=== PATIENT | female | born 1995 | race Caucasian/White ===

== ENCOUNTER → 2016-08-31 | Outpatient (REF) | payer BC, MEDICAID ==
[~2016-08-31] MED LIST: ACET50TA PO; IBUP80TA PO
== END ==
LOC: M LAB REF 16:45
PROVIDERS: ATTEND Obstetrics & Gynecology
DX: Z34.83 Encounter for supervision of other normal pregnancy, third trimester (principal)

== ENCOUNTER 2016-09-15 07:30 | Inpatient (IN) | payer BC, MEDICAID ==
[~2016-09-15] VITALS: Ht 152.4 cm; Wt 97.0 kg
[~2016-09-15 07:30] MED LIST changes: +PREN1TAB11 PO
[2016-09-21] VITALS (8 sets, daily range): BP systolic 121–145; BP diastolic 58–73
[2016-09-21] MEDS ORDERED: BICITRA 30ML SOLN UDC PO ONE (07:45)
[2016-09-21] MEDS ORDERED: LR 1,000 ML IV SCH (07:45)
[2016-09-21] MEDS ORDERED: LR 800 ML IV ONE (07:45)
[2016-09-21 08:22] LABS: MEAN CORPUSCULAR HEMOGLOBIN 29.5 pg (27.0-33.0); MEAN CORPUSCULAR HGB CONC 34.5 g/dl (32.0-36.5); MEAN CORPUSCULAR VOLUME 85.4 fl (80.0-96.0); RED CELL DISTRIBUTION WIDTH 13.5 % (11.5-14.5); WHITE BLOOD COUNT 10.5 K/mm3 (4.0-10.0)
[2016-09-21] MEDS ORDERED: MORPHINE PRES-FREE INJ 10 MG/10 ML VIAL (J2274) As Ordered ONE (09:31)
[2016-09-21] MEDS ORDERED: METOCLOPRAMIDE INJ 10MG/2ML VIAL (J2765) IV PRN (10:09)
[2016-09-21] MEDS: LR 1,000 ML IV SCH ×3 (10:09→23:48)
[2016-09-21] MEDS ORDERED: ONDANSETRON 4MG/2ML VIAL (J2405) IV PRN ×3 (10:09→11:30)
[2016-09-21] MEDS ORDERED: NALOXONE INJ 0.4 MG/1 ML VIAL (J2310) IV PRN ×2 (10:09)
[2016-09-21] MEDS ORDERED: NALBUPHINE HCL 10 MG/ML AMP (J2300) IV PRN ×2 (10:09→11:30)
[2016-09-21] MEDS ORDERED: DOCUSATE SODIUM 100 MG CAP PO PRN (10:15)
[2016-09-21] MEDS ORDERED: PERCOCET 5MG/325MG TAB PO PRN ×3 (10:15→11:30)
[2016-09-21] MEDS ORDERED: RHOGAM 300 MCG (1500 IU) INJ (J2790) IM SCH (10:15)
[2016-09-21] MEDS ORDERED: MEASLES,MUMPS,RUBELLA VACCINE INJ (MMR-II) (90707) SC SCH (10:15)
[2016-09-21] MEDS ORDERED: PHENYLephrine HCL 500 MCG/5 ML (100MCG/ML) SYRINGE (J2370) As Ordered ONE (10:21)
[2016-09-21] MEDS ORDERED: ONDANSETRON 4MG/2ML VIAL (J2405) As Ordered ONE (10:25)
[2016-09-21] MEDS ORDERED: OXYTOCIN DRIP 30 UNITS in APPROPRIATE DILUENT 1 EA IV ONE (10:30)
[2016-09-21] MEDS ORDERED: fentaNYL 100 MCG/2 ML INJECTION (J3010) IV PRN (11:30)
[2016-09-21] MEDS ORDERED: KETOROLAC 30 MG/ML VIAL (J1885) IV PRN (11:30)
--- NOTE | 2016-09-21 11:57 | RO ---
DATE OF PROCEDURE: 09/21/2016 PREPROCEDURE DIAGNOSIS: 39 weeks, breech presentation. POSTPROCEDURE DIAGNOSIS: 39 weeks, breech presentation. PROCEDURE: Primary low transverse section. SURGEON: Bayron Hutchinson MD CHILD AND FAMILY SERVICES SPECIALIST: Amos Chapman DO ANESTHESIA: Spinal. ESTIMATED BLOOD LOSS: 500 mL. URINE OUTPUT: 350 mL. FINDINGS: 3992 gram or 8 pound 9 ounce male infant. scores 8 and 8. Odette breech position. Normal uterus, fallopian tubes, and ovaries. DESCRIPTION OF PROCEDURE: THe patient was taken to the operating room where spinal anesthesia was induced. She was prepped and draped in a sterile fashion in the supine position. Martinez catheter was placed. Pfannenstiel skin incision was made with the scalpel and carried through to the fascia. The fascia was nicked and extended. The peritoneal cavity was entered. Bladder flap was created. Curvilinear incision was made in the lower uterine segment until bulging membranes were noted. This was extended manually. Membranes ruptured, clear fluid. The was delivered from the odette breech position using standard maneuvers without difficulty. The cord was doubly clamped and cut. The infant was handed off to the awaiting nurses. Placenta was expressed. The uterus was exteriorized and cleared of clots and debris. Uterine incision was closed with #0 Vicryl in a running lock fashion. A second imbricating layer of #0 Vicryl was placed. The uterus was placed back in the abdominal cavity. The peritoneum was closed with #0 Vicryl. Subcutaneous tissue was irrigated. The deep layer was closed with #2-0 chromic. The skin was closed with #4-0 Monocryl. Sponge and instrument counts were correct times two.
[2016-09-21] MEDS: KETOROLAC 30 MG/ML VIAL (J1885) IV SCH ×2 (18:03→23:48)
[2016-09-22 02:00] VITALS: BP 114/57
[2016-09-22] MEDS: KETOROLAC 30 MG/ML VIAL (J1885) IV SCH (05:55)
[2016-09-22 06:05] VITALS: BP 119/57
[2016-09-22 07:05] LABS: MEAN CORPUSCULAR HEMOGLOBIN 28.8 pg (27.0-33.0); MEAN CORPUSCULAR HGB CONC 33.3 g/dl (32.0-36.5); MEAN CORPUSCULAR VOLUME 86.7 fl (80.0-96.0); RED CELL DISTRIBUTION WIDTH 13.8 % (11.5-14.5); WHITE BLOOD COUNT 9.9 K/mm3 (4.0-10.0)
[2016-09-22] MEDS: PRENATAL VITAMIN TAB PO SCH (08:28)
[2016-09-22 10:00] VITALS: BP 112/65
[2016-09-22] MEDS: LR 1,000 ML IV SCH ×2 (12:21→18:09)
[2016-09-22] MEDS: IBUPROFEN 800 MG TAB PO SCH ×2 (12:21→20:19)
[2016-09-22 14:00] VITALS: BP 116/64
[2016-09-22 18:19] VITALS: BP 127/70
[2016-09-22 22:18] VITALS: BP 128/75
[2016-09-23] MEDS: IBUPROFEN 800 MG TAB PO SCH (03:56)
[2016-09-23 06:04] VITALS: BP 121/63
[2016-09-23] MEDS ORDERED: IBUP800T23 PO (07:18)
[2016-09-23] MEDS ORDERED: PERC5TAB6 PO (07:19)
[2016-09-23] MEDS ORDERED: MOTR200T44 PO (09:56)
[2016-09-23] MEDS ORDERED: PRENTAB13 PO (09:56)
[2016-09-23] MEDS ORDERED: OXYC1TAB23 PO (09:56)
[2016-09-23] MEDS ORDERED: COLA100C PO (09:56)
[2016-09-23] MEDS: PRENATAL VITAMIN TAB PO SCH (10:08)
== END 2016-09-23 11:00 | disposition home or self-care (01) | DRG 540 ==
LOC: M LDI 09-21 07:28 → M OBS 09-21 13:02
PROVIDERS: ADMIT Specialist; ATTEND Specialist
PROC: 10D00Z1 Extraction of Products of Conception, Low, Open Approach (ICD-10-PCS; principal; 2016-09-21 09:30)
DX: O64.1XX0 Obstructed labor due to breech presentation, not applicable or unspecified (principal); Z37.0 Single live birth; Z3A.39 39 weeks gestation of pregnancy

== ENCOUNTER → 2017-04-14 | Outpatient (REF) | payer BC ==
[~2017-04-14] MED LIST changes: +COLA100C5 PO; +IBUP1TAB7 PO; +MOTR200T44 PO; +OXYC1TAB23 PO; +PERC5TAB12 PO; +PRENTAB20 PO
== END ==
LOC: M LAB REF 17:04
PROVIDERS: ATTEND Physician Assistant Medical
DX: J02.9 Acute pharyngitis, unspecified (principal)

== ENCOUNTER → 2017-11-10 | Outpatient (REF) | payer BC | LOC: M LAB REF 17:27 | DX: Z12.4 Encounter for screening for malignant neoplasm of cervix (principal) ==

== ENCOUNTER → 2017-12-30 | Outpatient (REF) | payer BC | LOC: M LAB REF 13:25 | DX: R30.0 Dysuria (principal) | CPT/HCPCS: 87086 ==

== ENCOUNTER → 2018-01-26 | Outpatient (REF) | payer BC ==
[2018-01-26 19:01] LABS: CHLAMYDIA DNA AMPLIFICATION NEGATIVE (NEGATIVE); GC DNA AMPLIFICATION NEGATIVE (NEGATIVE)
== END ==
LOC: M LAB REF 17:13
DX: R10.2 Pelvic and perineal pain (principal)
CPT/HCPCS: 87086

== ENCOUNTER → 2018-02-23 | Outpatient (REF) | payer BC | LOC: M LAB REF 18:52 | DX: J02.9 Acute pharyngitis, unspecified (principal) ==

== ENCOUNTER → 2020-01-05 | Outpatient (CLI) | payer BC ==
[~2020-01-05] MED LIST changes: -ACET50TA PO; +MAPA500T17 PO
[2020-01-06 08:44] LABS: BASO % 0.2 % (0.0-1.0); EOS # 0.2 10^3/uL (0.0-0.5); EOS % 1.9 % (0.0-3.0); HEMATOCRIT 39.7 % (36.0-47.0); HEMOGLOBIN 12.3 g/dl (12.0-15.5); LYMPH # 1.9 10^3/uL (1.5-5.0); LYMPH % 18.7 % (24.0-44.0); MEAN CORPUSCULAR HEMOGLOBIN 28.5 pg (27.0-33.0); MEAN CORPUSCULAR VOLUME 92.1 fl (80.0-96.0); MONO # 0.7 10^3/uL (0.0-0.8); MONO % 7.4 % (0.0-5.0); NEUTROPHILS # 7.1 10^3/uL (1.5-8.5); NEUTROPHILS % 71.6 % (36.0-66.0); PLATELET COUNT, AUTOMATED 217 10^3/uL (150-450); RED BLOOD COUNT 4.31 10^6/uL (4.00-5.40); WHITE BLOOD COUNT 9.9 10^3/uL (4.0-10.0)
[2020-01-06 11:21] LABS: CHLAMYDIA DNA AMPLIFICATION NEGATIVE (NEGATIVE); GC DNA AMPLIFICATION NEGATIVE (NEGATIVE)
[2020-01-07 10:51] LABS: HEPATITIS C VIRUS ABY INDEX 0.1 INDEX (<0.8); HIV 1&2 SCREEN CENTAUR NEGATIVE (NEGATIVE)
== END ==
LOC: M WUC 10:11
PROVIDERS: ATTEND Specialist

== ENCOUNTER → 2020-03-04 | Outpatient (CLI) | payer BC ==
--- NOTE | 2020-04-25 08:28 | REP ---
OBSTETRIC ULTRASOUND REASON FOR EXAM: anatomy. Delay in reporting results from malfunction of the hospital computer system as the result of a malware attack. FINDINGS: There is a single intrauterine gestation in a transverse lie with the head to the maternal right. The placenta is posterior, grade 0 without previa and without abruptio. heart rate is 139 beats per minute. Subjectively the amniotic fluid volume is normal. The cervix measures 4.8 cm in length. The composite gestational age by the ultrasound today is 19 weeks 5 days. Estimated weight is 300 grams. This is the 73rd percentile. The following anatomic structures are identified and are unremarkable: Cisterna magnum, cavum septum pellucidum, thalami, spine, stomach, kidneys, four chamber heart, cardiac right and left ventricular outflow tracts, bladder, three-vessel cord, cord insertion, upper and lower extremities, face and upper lip. No anomalies are identified. MTDD
== END ==
LOC: M WHC 06:16
PROVIDERS: ATTEND Advanced Practice Midwife
DX: Z34.82 Encounter for supervision of other normal pregnancy, second trimester (principal); Z3A.19 19 weeks gestation of pregnancy

== ENCOUNTER → 2020-04-19 | Outpatient (CLI) | payer BC ==
[2020-04-19 14:39] LABS: BASO % 0.3 % (0.0-1.0); EOS # 0.2 10^3/uL (0.0-0.5); HEMATOCRIT 35.5 % (36.0-47.0); HEMOGLOBIN 11.7 g/dl (12.0-15.5); LYMPH # 1.5 10^3/uL (1.5-5.0); MEAN CORPUSCULAR HEMOGLOBIN 30.1 pg (27.0-33.0); MEAN CORPUSCULAR VOLUME 91.3 fl (80.0-96.0); MONO # 0.8 10^3/uL (0.0-0.8); NEUTROPHILS # 8.1 10^3/uL (1.5-8.5); NEUTROPHILS % 75.4 % (36.0-66.0); PLATELET COUNT, AUTOMATED 196 10^3/uL (150-450); RED BLOOD COUNT 3.89 10^6/uL (4.00-5.40); WHITE BLOOD COUNT 10.8 10^3/uL (4.0-10.0)
== END ==
LOC: M WUC 09:23
PROVIDERS: ATTEND Specialist
DX: Z34.82 Encounter for supervision of other normal pregnancy, second trimester (principal)
CPT/HCPCS: 36415; 82950; 85025; 86850; 86900; 86901; J2790

== ENCOUNTER → 2020-06-25 | Outpatient (REF) | payer BC | LOC: M SFHCWAGY 16:56 | PROVIDERS: ATTEND Specialist | DX: Z34.83 Encounter for supervision of other normal pregnancy, third trimester (principal); Z3A.00 Weeks of gestation of pregnancy not specified ==

== ENCOUNTER → 2020-07-24 | Outpatient (CLI) | payer BC ==
[~2020-07-24] MED LIST changes: +PERCOCET PO
== END ==
LOC: M LABSMTC 09:48
PROVIDERS: ATTEND Anesthesiology
DX: Z01.812 Encounter for preprocedural laboratory examination (principal); Z20.828 Contact with and (suspected) exposure to other viral communicable diseases

== ENCOUNTER 2020-07-29 05:13 | Inpatient (IN) | payer BC ==
[~2020-07-29] VITALS: Ht 180.3 cm; Wt 103.4 kg
[2020-07-29] VITALS (8 sets, daily range): BP systolic 125–140; BP diastolic 65–87
[~2020-07-29 05:13] MED LIST changes: -PERCOCET PO
[2020-07-29] MEDS ORDERED: BICITRA 30ML SOLN UDC PO ONE (05:30)
[2020-07-29] MEDS ORDERED: LR 1,000 ML IV ONE (05:30)
[2020-07-29] MEDS ORDERED: ceFAZolin SOD 2 GM in IV 1 EA IV ONE (05:45)
[2020-07-29 06:28] LABS: HEMATOCRIT 35.2 % (36.0-47.0); HEMOGLOBIN 11.1 g/dl (12.0-15.5); MEAN CORPUSCULAR HEMOGLOBIN 27.4 pg (27.0-33.0); MEAN CORPUSCULAR HGB CONC 31.5 g/dl (32.0-36.5); MEAN CORPUSCULAR VOLUME 86.9 fl (80.0-96.0); PLATELET COUNT, AUTOMATED 157 10^3/uL (150-450); RED BLOOD COUNT 4.05 10^6/uL (4.00-5.40); WHITE BLOOD COUNT 8.2 10^3/uL (4.0-10.0)
[2020-07-29] MEDS ORDERED: LR 1,000 ML IV SCH ×3 (06:30→11:45)
[2020-07-29] MEDS ORDERED: MORPHINE PRES-FREE INJ 10 MG/10 ML VIAL (J2274) As Ordered ONE (07:19)
[2020-07-29] MEDS ORDERED: OXYTOCIN INJ 10 UNITS/ML VIAL (J2590) As Ordered ONE (07:24)
--- NOTE | 2020-07-29 07:45 | HPEPDOC ---
Obstetrical History & Physical General Date of Admission Jul 29, 2020 at 05:13 History of Present Illness 25yo at 41+0 weeks EGA. Presents for a scheduled RLTCS/BTL. Was awaiting spontaneous labor, but decided to proceed with RLTCS if she reached 41 weeks without labor. No LOF/VB/uctx. +FM. Requesting tubal sterilization. 100% satisfied parity. Dating Final EDC: Jul 22, 2020 Past Medical History Past Medical History Medical History PMH: none SH: LTCS x 1 Meds: PNV All: NKDA Sochx: no t/e/d Famhx: HTN Allergies Coded Allergies: No Known Allergies (Unverified , 07/16/20) Medications Scheduled Vit No.124/Iron/Folic ( Vitamin Tablet) 1 Tab Tab, 1 TAB PO DAILY Physical Examination Physical Examination GENERAL: Alert and oriented times three. BREAST: . ABDOMEN: Gravid and non-tender to touch. FETUS: Is vertex (VTX) by sterile vaginal examination (SVE), fetus is vertex (VTX) by Corey. HEART RATE: Regular rate and rhythm. LUNGS: Clear to auscultation (CTA). EXTREMITIES: No edema. No clonus. Vital Signs/I&O Vital Signs Date Time Temp Pulse Resp B/P (MAP) Pulse Ox O2 Delivery O2 Flow Rate FiO2 07/29/20 07:20 97.8 64 16 Room Air 07/29/20 06:42 127/69 (88) Laboratory Data 24H LABS Laboratory Tests 2 07/28/20 20:52: Serology Scanned Report Hepatitis B Testing 07/29/20 06:14: Nucleated Red Blood Cells % (auto) 0.0 CBC/BMP Laboratory Tests 07/29/20 06:14 Pertinent Laboratoy Data Blood Type: A- RBC Antibody Screen: Negative HIV: Negative Hepatitis B: Negative Hepatitis C: Negative Rubella: Immune Chlamydia/Gonorrhea: Negative Glucose Tolerance Test: 94 Assessment Heart Rate (FHR): 135 Variability: Moderate Accelerations: Positive Decelerations: None Tocometer Frequency: irregular Assessment/Plan Assessment 25yo . 41+0 weeks. Declines IOL. Plan for RLTCS and BTL. Reassuring maternal and status. Plan Admit, expect 2 MN Preparations for OR being made Ancef 2g for PPx. BRIE CONDON CNM Jul 29, 2020 07:45
[2020-07-29] MEDS ORDERED: diphenhydrAMINE 50MG/ML VIAL (J1200) IV PRN (07:47)
[2020-07-29] MEDS ORDERED: METOCLOPRAMIDE INJ 10MG/2ML VIAL (J2765 PER 1) IV PRN (07:47)
[2020-07-29] MEDS ORDERED: NALBUPHINE HCL 10 MG/ML AMP (J2300) IV PRN (07:47)
[2020-07-29] MEDS ORDERED: NALOXONE INJ 0.4MG/1ML VIAL (J2310 PER 1MG) IV PRN ×2 (07:47)
[2020-07-29] MEDS ORDERED: ONDANSETRON 4MG/2ML VIAL IV PRN ×2 (07:47→09:30)
[2020-07-29] MEDS ORDERED: ONDANSETRON 4MG/2ML VIAL As Ordered ONE (07:57)
[2020-07-29] MEDS ORDERED: KETOROLAC 60MG 2ML VIAL As Ordered ONE (07:58)
[2020-07-29] MEDS ORDERED: dexameTHASONE 4 MG/ML 1ML VIAL (J1100 PER 1MG) As Ordered ONE (07:58)
[2020-07-29] MEDS ORDERED: OXYTOCIN 30 UNITS IN 0.9% NaCl 500ML IV BAG (J2590) As Ordered ONE (09:07)
[2020-07-29] MEDS ORDERED: OXYTOCIN DRIP 30 UNITS in IV 1 EA IV SCH (09:16)
[2020-07-29] MEDS ORDERED: ONDANSETRON 4 MG TAB PO PRN (09:30)
[2020-07-29] MEDS ORDERED: PERCOCET 5MG/325MG TAB PO PRN (09:30)
[2020-07-29] MEDS ORDERED: fentaNYL 100 MCG/2 ML INJECTION (J3010) IV PRN (09:30)
[2020-07-29] MEDS ORDERED: oxyCODONE 5MG TAB PO PRN (09:30)
[2020-07-29] MEDS ORDERED: PROMETHAZINE 25 MG TAB PO PRN (09:30)
[2020-07-29] MEDS ORDERED: RHOGAM 300 MCG (1500 IU) INJ (J2790) IM SCH (09:30)
[2020-07-29] MEDS ORDERED: MEASLES,MUMPS,RUBELLA VACCINE INJ (MMR-II) (90707) SC SCH (09:30)
--- NOTE | 2020-07-29 09:53 | ROOPDOC ---
[facility] Report Of Operation Report of Operation DATE OF PROCEDURE: 07/29/2020 PREPROCEDURE DIAGNOSES: 41 weeks gestation. History of prior low transverse section. Satisfied parity POSTPROCEDURE DIAGNOSES: same PROCEDURE: Repeat low transverse section with bilateral tubal ligation. SURGEON: Amos Chapman DO FACOG HIGH CLIMBER: Amy Valdez DO (Essential role in retraction, extraction, and closure of all tissue layers) ANESTHESIA: Spinal with Duramorph ESTIMATED BLOOD LOSS: 600 mL. IV FLUIDS: 1500 mL LR URINE OUTPUT: 150mL COMPLICATIONS: None. FINDINGS: Normal uterus and bilateral fallopian tubes/ovaries. PREOPERATIVE ANTIBIOTICS: Ancef 2g IV x 1. DATA: Apgars 9 and 9. Birthweight 4700g, 10lbs 6oz . SPECIMENS: right and left fallopian tubal segments. right fallopian tube includes fimbriated end. PRIMARY INDICATION FOR : history of prior low transverse section. DESCRIPTION OF PROCEDURE: The patient was counseled on the risks, benefits, indications and alternatives of the procedure. Informed consent was obtained. She was taken to the operating room with IV running and placed on the operating table in the dorsal supine position with a leftward tilt. Regional anesthesia/epidural was bolused and found to be adequate. Sequential compression devices were placed on the lower extremities. A Martinez catheter was placed under sterile conditions. She was prepared and draped in normal sterile fashion. A time out was performed per pr otocol. Epidural anesthesia was again found to be adequate. A Pfannenstiel skin incision was made with the 10 blade. The 10 blade was used to dissect down to the level of the rectus sheath fascia. The rectus sheath pressure was incised midline and this was extended bilaterally with Yan scissors , and manual stretch. The rectus muscle bellies were dissected off the rectus sheath fascia superiorly and inferiorly using both sharp and blunt dissection. The midline was identified. The peritoneum was identified and entered digitally. The peritoneal opening was extended with manual stretch. The Mobius retractor was placed. The vesicouterine peritoneum was dissected with Metzenbaum scissors to create the bladder flap. A low transverse uterine incision was made with the 10 blade. This was extended with manual stretch. The amniotic sac was punctured, and clear fluid was noted. The head delivered through the hysterotomy without difficulty. The remainder of the body delivered with ease. The cord was doubly clamped and cut, and the baby was handed off to awaiting care. data shown above. The placenta was removed manually. The intrauterine cavity was cleared of all clot and debris. The hysterotomy was closed with 0 Vicryl in running locked fashion. This was reinforced with a second imbricating layer using 0 Vicryl in running fashion. An additional 0-Vicryl figure of eight stitch was placed in the central portion of the hysterotomy. Excellent hemostasis of the hysterotomy was noted. The right and left fallopian tubes were followed out to the fimbriated end. A ligation was performed on each fallopian tube using the following technique (Leah): The ampullary portion of each was grasped with a [place] and elevated. A peritoneal window was created with Bovie along the mesosalpinx. Plain gut suture was used to tie two locations of the fallopian tube at the ends of the created window. The approximate 2-3cm intervening segment of fallopian tube was excised with Metzenbaum scissors. Additional bleeding was noted on the right side and the decision was made to cross clamp underneath the tuba/fimbriated end, cut, and suture ligate thus removing the distal portion of the right fallopian tube Bovie cautery was used to obliterate the lumen of the left fallopian tube on each cut end, and the proximal end of the right fallopian tube lumen. Excellent hemostasis was noted. The pelvis was irrigated and the fluid suctioned. The Mobius retractor was removed. The peritoneum was closed with 3-0 Vicryl running fashion. The rectus muscle bellies were reapproximated with interrupted stitches using 3-0 Vicryl. The rectus muscles bellies were hemostatic. The rectus sheath fascia was closed with 0 Vicryl running fashion. The subcutaneous layer was irrigated and the fluid suctioned. Small bleeding vessels were cauterized with Bovie. Excellent hemostasis was noted. The subcutaneous layer was reapproximated with 3-0 Vicryl running fashion. Skin was closed with 3-0 Monocryl in subcuticular fashion. An Optifoam bandage was placed over the closed incision. Sponge, needle and instrument counts were correct per protocol throughout the procedure. The patient tolerated the entire procedure very well. She was transferred to the PACU in stable condition. DO IRIS Enrique JONATHAN R. DO Jul 29, 2020 09:53
[2020-07-29] MEDS ORDERED: METHYLERGONOVINE MALEATE 0.2 MG/ML VIAL (J2210) IM STA (10:26)
[2020-07-29] MEDS: KETOROLAC 30 MG/ML 1ML VIAL IV SCH ×2 (14:52→20:59)
[2020-07-29] MEDS: DOCUSATE SODIUM 100MG CAPSULE PO SCH (20:59)
[2020-07-30] MEDS: KETOROLAC 30 MG/ML 1ML VIAL IV SCH (02:06)
[2020-07-30 02:21] VITALS: BP 107/58
[2020-07-30 06:24] VITALS: BP 126/76
[2020-07-30] MEDS: DOCUSATE SODIUM 100MG CAPSULE PO SCH ×2 (08:03→19:58)
[2020-07-30] MEDS: PRENATAL VITAMINS CHEWABLE TABLET PO SCH (08:03)
[2020-07-30 08:08] LABS: HEMATOCRIT 27.8 % (36.0-47.0); MEAN CORPUSCULAR HEMOGLOBIN 27.4 pg (27.0-33.0); MEAN CORPUSCULAR HGB CONC 30.9 g/dl (32.0-36.5); MEAN CORPUSCULAR VOLUME 88.5 fl (80.0-96.0); PLATELET COUNT, AUTOMATED 114 10^3/uL (150-450); RED BLOOD COUNT 3.14 10^6/uL (4.00-5.40); WHITE BLOOD COUNT 8.5 10^3/uL (4.0-10.0)
[2020-07-30 08:32] LABS: HEMOGLOBIN 8.6 g/dl (12.0-15.5)
[2020-07-30 10:05] VITALS: BP 130/70
[2020-07-30] MEDS: IBUPROFEN 800 MG TAB PO SCH ×2 (10:38→18:02)
[2020-07-30] MEDS ORDERED: IBUP80TA PO (13:50)
[2020-07-30] MEDS ORDERED: PERCOCET PO ×2 (13:50→14:32)
[2020-07-30 13:59] VITALS: BP 123/61
[2020-07-30 17:49] VITALS: BP 142/82
[2020-07-30] MEDS: PERCOCET 5MG/325MG TAB PO PRN (19:32)
[2020-07-30 22:00] VITALS: BP 144/65
[2020-07-31 02:00] VITALS: BP 139/75
[2020-07-31] MEDS: IBUPROFEN 800 MG TAB PO SCH ×2 (02:22→11:26)
[2020-07-31 06:00] VITALS: BP 143/69
--- NOTE | 2020-07-31 07:40 | DSES ---
DISCHARGE SUMMARY DATE OF ADMISSION: 07/29/2020 DATE OF DISCHARGE: 10/01/2019 DISCHARGE DIAGNOSIS: 1. Repeat section with bilateral tubal ligation, postop day #2 stable condition. SURGEON: SERVANDO CHAPMAN DO NASCAR RACER: BRIE CONDON CNM BRIEF HISTORY: Casi is a 25-year-old 3 para 3-0-0-3 now who underwent repeat section with bilateral tubal ligation on 07/29/2020. Her surgery was uncomplicated. She delivered a live female infant 4700 grams, 10 pounds 6 ounces. Apgars were 9 and 9. Estimated blood loss 600 ml. Casi has been voiding without difficulty, passing flatus. Her pain has been well-managed with p.o. pain medications. She has been out of bed for self-care, hollie-care and care. Her breast feeding has been initiated and it is well-established. She does desire discharge home. Her pain has been managed well with p.o. pain medications. OBJECTIVE: Temperature 98.3, pulse 80, respirations 16, BP 143/69. Preoperative CBC on 07/29/2020: Hemoglobin 11.1, hematocrit 35.2, platelets 157,000. Postoperative CBC on 07/30/2020: Hemoglobin 8.6, hematocrit 27.8, platelets 114,000. He is alert and oriented x3. Her breasts are soft and nontender. Nipples are intact. There are no cracks and no bleeding. Abdomen and umbilicus: Firm. Dressing is in place, no new drainage noted. Perineum is intact. Lochia is scant. Bilateral lower extremities: Scant pitting edema. PLAN: Discharge the patient home today. She is to follow-up at [facility] for a two week incision check and an [address] Servando Chapman. Pain medications have been e-prescribed to her pharmacy by Dr. Servando Chpaman. I did review discharge instructions that include breast care, incision care, hollie-care, pelvic rest, activity and lifting restrictions, danger signs to report to her provider and access to care. The patient and her partner had all of their questions and request discharge home today.
[2020-07-31] MEDS: DOCUSATE SODIUM 100MG CAPSULE PO SCH (08:27)
[2020-07-31] MEDS: PERCOCET 5MG/325MG TAB PO PRN (08:27)
[2020-07-31] MEDS: PRENATAL VITAMINS CHEWABLE TABLET PO SCH (08:27)
== END 2020-07-31 12:40 | disposition home or self-care (01) | DRG 540 ==
LOC: M LDI 05:13 → M OBS 10:50
PROVIDERS: ADMIT Obstetrics & Gynecology; ATTEND Obstetrics & Gynecology
PROC: 0UB70ZZ Excision of Bilateral Fallopian Tubes, Open Approach (ICD-10-PCS; 2020-07-29)
PROC: 10D00Z1 Extraction of Products of Conception, Low, Open Approach (ICD-10-PCS; principal; 2020-07-29 07:30)
DX: O34.211 Maternal care for low transverse scar from previous cesarean delivery (principal); Z30.2 Encounter for sterilization; Z3A.41 41 weeks gestation of pregnancy; Z37.0 Single live birth

== ENCOUNTER → 2021-10-07 | Outpatient (CLI) | payer BC ==
[~2021-10-07] MED LIST changes: +PERCOCET PO
== END ==
LOC: M RAD 10:06
PROVIDERS: ATTEND Surgery
DX: R10.31 Right lower quadrant pain (principal)

== ENCOUNTER → 2021-12-15 | Outpatient (REF) | payer BC | LOC: M SFHCWAGY 13:11 | PROVIDERS: ATTEND Specialist | DX: Z01.419 Encounter for gynecological examination (general) (routine) without abnormal findings (principal); Z12.4 Encounter for screening for malignant neoplasm of cervix ==

== ENCOUNTER → 2022-02-11 | Outpatient (CLI) | payer BC ==
[2022-02-11 16:05] LABS: BASO % 0.4 % (0.0-1.0); EOS # 0.4 10^3/uL (0.0-0.5); EOS % 3.6 % (0.0-3.0); HEMATOCRIT 41.9 % (36.0-47.0); HEMOGLOBIN 13.3 g/dl (12.0-15.5); LYMPH % 20.1 % (24.0-44.0); MEAN CORPUSCULAR HEMOGLOBIN 27.8 pg (27.0-33.0); MEAN CORPUSCULAR HGB CONC 31.7 g/dl (32.0-36.5); MEAN CORPUSCULAR VOLUME 87.7 fl (80.0-96.0); MONO # 0.8 10^3/uL (0.0-0.8); MONO % 7.5 % (2.0-8.0); NEUTROPHILS # 6.9 10^3/uL (1.5-8.5); NEUTROPHILS % 68.1 % (36.0-66.0); PLATELET COUNT, AUTOMATED 252 10^3/uL (150-450); RED BLOOD COUNT 4.78 10^6/uL (4.00-5.40); WHITE BLOOD COUNT 10.1 10^3/uL (4.0-10.0)
[2022-02-11 16:26] LABS: CK-MB VALUE MASS 2.2 NG/ML (<3.6); MB/CK RELATIVE INDEX 2.86 (< OR =4)
[2022-02-11 19:08] LABS: ERYTHROCYTE SEDIMENTATION RATE 6 mm/hr (0-20)
== END ==
LOC: M WUC 13:09
PROVIDERS: ATTEND Nurse Practitioner Adult Health
DX: R07.89 Other chest pain (principal)

== ENCOUNTER → 2022-05-31 | Outpatient (REF) | payer BC ==
[2022-05-31 18:04] LABS: APPEARANCE, URINE MANUAL CLEAR (CLEAR); COLOR, URINE MANUAL LT YELLOW (YELLOW)
[2022-05-31 18:07] LABS: BILIRUBIN, URINE MANUAL NEGATIVE (NEGATIVE); BLOOD URINE MANUAL POSITIVE (NEGATIVE); GLUCOSE, URINE (UA) MANUAL NEGATIVE (NEGATIVE); KETONE, URINE MANUAL NEGATIVE (NEGATIVE); LEUKOCYTE ESTERASE, URINE MAN POSITIVE (NEGATIVE); NITRITE, URINE MANUAL NEGATIVE (NEGATIVE); PROTEIN, URINE MANUAL NEGATIVE (NEGATIVE); SPECIFIC GRAVITY,URINE MANUAL 1.005 (1.002-1.035); UROBILINOGEN, URINE MANUAL NORMAL (NORMAL)
[2022-05-31 19:02] LABS: BACTERIA, URINE LARGE AMOUNT; RBC, URINE 0-1 /hpf (0-3); SQUAMOUS EPITHELIAL CELL URINE SMALL AMOUNT /hpf (SMALL AMT)
[2022-05-31 19:03] LABS: HYALINE CAST, URINE NONE SEEN /lpf (0-1)
== END ==
LOC: M LAB REF 17:14
PROVIDERS: ATTEND Nurse Practitioner Adult Health
DX: N39.0 Urinary tract infection, site not specified (principal)

== ENCOUNTER → 2023-08-15 | Outpatient (CLI) | payer OTHER | LOC: M RAD 12:06 | PROVIDERS: ATTEND Family Medicine | DX: J20.9 Acute bronchitis, unspecified (principal) ==

== ENCOUNTER → 2024-05-14 | Outpatient (REF) | payer OTHER | LOC: M LAB REF 16:54 | PROVIDERS: ATTEND Nurse Practitioner Adult Health | DX: N39.0 Urinary tract infection, site not specified (principal) ==

== ENCOUNTER → 2024-06-20 | Outpatient (REF) | payer BC, OTHER ==
[2024-06-25 07:01] LABS: HPV APTIMA Not Detected (Not Detected)
== END ==
LOC: M SFHCWAGY 08:15
PROVIDERS: ATTEND Specialist
DX: Z01.419 Encounter for gynecological examination (general) (routine) without abnormal findings (principal)
CPT/HCPCS: 87624; G0123

== ENCOUNTER → 2025-03-08 | Outpatient (CLI) | payer OTHER | LOC: M WHC 07:03 | PROVIDERS: ATTEND Specialist | DX: N92.6 Irregular menstruation, unspecified (principal); N83.291 Other ovarian cyst, right side ==

== ENCOUNTER 2025-07-29 18:24 | Emergency (ER) | payer OTHER ==
[~2025-07-29] VITALS: Ht 175.3 cm; Wt 95.4 kg
[2025-07-29] MEDS ORDERED: ACETAMINOPHEN 500 MG TAB PO ONE (18:40)
[2025-07-29] MEDS: ACETAMINOPHEN 500 MG TAB PO ONE (18:44)
[2025-07-29 23:09] VITALS: BP 108/69; TEMP 98.4; O2SAT 98
== END 2025-07-29 23:11 | disposition left against medical advice (07) ==
LOC: M ED 18:24
DX: Z53.21 Procedure and treatment not carried out due to patient leaving prior to being seen by health care provider (principal)